=== PATIENT | female | born 1960 | race Caucasian/White ===

== ENCOUNTER 2023-07-19 08:07 | Emergency (ER) | payer OTHER ==
[~2023-07-19] VITALS: Ht 152.4 cm; Wt 51.3 kg
[2023-07-19 08:30] VITALS: BP 110/63; PULSE 102; RESP 18; TEMP 98.7; O2SAT 99
[2023-07-19] MEDS ORDERED: NAPR-1704 PO (09:47)
[2023-07-19] MEDS ORDERED: SUD30 PO (09:47)
[2023-07-19] MEDS ORDERED: [UNRECOGNIZED DRUG - CODE] PO (09:47)
[2023-07-19] MEDS ORDERED: BENZ200C4 PO (09:47)
[2023-07-19 10:27] VITALS: BP 110/63; PULSE 102; RESP 18; TEMP 98.7; O2SAT 99
== END 2023-07-19 10:27 | disposition home or self-care (01) ==
LOC: EDBD 08:07 → MED 08:07
DX: U07.1 COVID-19 (principal); I10 Essential (primary) hypertension; Z79.899 Other long term (current) drug therapy
CPT/HCPCS: 99283